=== PATIENT | male | born 1960 | race Caucasian/White ===

== ENCOUNTER 2019-04-02 08:49 | Inpatient (IN) ==
--- NOTE | 2019-03-11 14:22 | Anesthesiology Consultation ---
Date of Service March 11, 2019 Assessment & Plan (1) Encounter for pre-operative examination: -No previous anesthesia records with intubations. Chart Review Chart Review: Acceptable Risk for Surgery and Patient seen in Pre Admission Testing Consults Requested medical ([facility] - 03/13 @ 2:45) Patient was seen by PCP at [facility] on 03/13. Per note, "DJD Left Shoulder -- Stable for surgery". Teaching & Discussion Pre-Anesthesia Teaching/Discussion Notes: Instructed NPO after midnight before surgery, except medications with 15 cc of water. Medication instructions provided according to the PAT guidelines. History Surgery Operation Date: 04/02/19 10:00 Proposed Procedures p Left Total Shoulder Arthroplasty - Matheus Colvin MD Height/Weight Height: 5 ft 9 in Weight: 86.7 kg Allergies Allergy/AdvReac Type Severity Reaction Status Date / Time bee pollen Allergy Severe Anaphylaxis Verified 03/05/19 13:16 varenicline [From Chantix] Allergy Unknown RASH TORSO Verified 03/05/19 13:16 Medications Home Medications Medication Instructions Recorded Confirmed Last Taken albuterol sulfate 2 puff INHALATION Q6H PRN 03/05/19 03/05/19 Unknown cholecalciferol (vitamin D3) 4,000 unit PO QAM 03/05/19 03/05/19 Unknown [Vitamin D3] duloxetine 90 mg PO QAM 03/05/19 03/05/19 Unknown mbptfwmwqtd-yfopfvrvf-qshpetor 1 inh INHALATION QAM 03/05/19 03/05/19 Unknown [Trelegy Ellipta] hydrocodone-acetaminophen 1 tab PO TID PRN 03/05/19 03/05/19 Unknown lisinopril-hydrochlorothiazide 1 tab PO QAM 03/05/19 03/05/19 Unknown methocarbamol [Robaxin] 500 mg PO BID 03/05/19 03/05/19 Unknown multivitamin with minerals 1 cap PO QAM 03/05/19 03/05/19 Unknown omeprazole 40 mg PO QAM 03/05/19 03/05/19 Unknown simvastatin 40 mg PO PM 03/05/19 03/05/19 Unknown sucralfate [Carafate] 1 g PO QID PRN 03/05/19 03/05/19 Unknown Past Medical History Medical History Cancer SCLC - Dx 12/17 - UNDER OBSERVATION 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 Denies CP. Able to do housework and cooking. ) Past Surgical History Surgical History Fusion of spine LUMBAR CERVICAL History of adenoidectomy History of colonoscopy X MULTIPLE History of esophagogastroduodenoscopy (EGD) History of herniorrhaphy UMBILICAL History of tonsillectomy History of total knee replacement R/L Past Anesthesia History No Hx of Anesthesia Complications and No Family Hx of Anesthesia Complications History of PONV No Hx of PONV and No Hx of Motion Sickness Social History Smoking Status: Heavy tobacco smoker Smoking cigarettes per day: 2 PPD X 42 YRS Do You Dip or Chew Tobacco: No Hx Alcohol Use: Yes Alcohol type: beer alcohol intake frequency: a few times a week (weekends usually) Hx Substance Use: No Review of Systems Patient denies chest pain, palpitations. +SOB/MARIE (Lung Cancer & COPD/Emphysema) +Joint Pain (Neck, Back, Knee, Shoulder, Hands) +Acid Reflux (Controlled with current medications) +Cough/Wheezing (Lung Cancer & COPD/Emphysema - improves with inhalers) Physical Exam Vital Signs BP: 137/81 P: 83 R: 18 T: 98.7 SPO2: 97% on RA ENMT Mouth: + poor dentition Thyromental Distance: < 3.5 Finger Breadths (3) Mallampati Class: II Neck normal visual inspection and trachea midline; neck extension not limited Respiratory normal respiratory effort Auscultation: lungs clear to auscultation bilaterally Cardiovascular Rate/Rhythm: regular rate and regular rhythm Heart Sounds: no murmur Vessels: no carotid bruit Neurologic moves all extremities Psychiatric Orientation: alert and oriented x 3 Testing Laboratory Results 03/11/19 14:52 03/11/19 14:52 03/11/19 03/11/19 03/11/19 14:52 14:52 14:52 PT 10.5 INR 1.0 APTT 26.3 Hemoglobin A1c 5.2 Urine Color Urine Appearance Urine pH Ur Specific [place] Urine Protein Urine Glucose (UA) Urine Ketones Urine Nitrite Ur Leukocyte Esterase Blood Type A Positive Antibody Screen NEGATIVE 03/11/19 14:52 PT INR APTT Hemoglobin A1c Urine Color Yellow Urine Appearance Clear Urine pH 6.0 Ur Specific [place] 1.013 Urine Protein Negative Urine Glucose (UA) Negative Urine Ketones Negative Urine Nitrite Negative Ur Leukocyte Esterase Negative Blood Type Antibody Screen Electrocardiogram Date: 03/11/19 Findings: + NSR @ (72) and + no change from (09/12/13) Chest X-Ray Date: 03/11/19 Findings: + NAD
--- NOTE | 2019-03-11 14:28 | PAT Medication Instructions ---
Medication Instructions Date of Service March 11, 2019 Home Medications albuterol sulfate 2 puff INHALATION Q6H NEEDED cholecalciferol (vitamin D3) [Vitamin D3] 4,000 unit PO QAM duloxetine 90 mg PO QAM elntjzyiuzw-jnlkuplhh-ccdsuyir [Trelegy Ellipta] 1 inh INHALATION QAM hydrocodone-acetaminophen 1 tab PO TID NEEDED lisinopril-hydrochlorothiazide 1 tab PO QAM methocarbamol [Robaxin] 500 mg PO BID multivitamin with minerals 1 cap PO QAM omeprazole 40 mg PO QAM simvastatin 40 mg PO PM sucralfate [Carafate] 1 g PO QID NEEDED DO NOT take the morning of surgery cholecalciferol (vitamin D3) [Vitamin D3] 4,000 unit PO QAM lisinopril-hydrochlorothiazide 1 tab PO QAM methocarbamol [Robaxin] 500 mg PO BID multivitamin with minerals 1 cap PO QAM sucralfate [Carafate] 1 g PO QID NEEDED Take morning of surgery With a small sip of water, OTHERWISE NOTHING TO EAT OR DRINK AFTER MIDNIGHT: albuterol sulfate 2 puff INHALATION Q6H NEEDED (if needed; bring to hospital) hydrocodone-acetaminophen 1 tab PO TID NEEDED (if needed; STOP 4 hours before surgery) duloxetine 90 mg PO QAM maxnzjliwap-egykyxzvp-ddflgsjv [Trelegy Ellipta] 1 inh INHALATION QAM omeprazole 40 mg PO QAM Take evening before surgery albuterol sulfate 2 puff INHALATION Q6H NEEDED (if needed) hydrocodone-acetaminophen 1 tab PO TID NEEDED (if needed) methocarbamol [Robaxin] 500 mg PO BID simvastatin 40 mg PO PM sucralfate [Carafate] 1 g PO QID NEEDED (if needed) Other Notes If you have any questions please call us at [phone] or [phone] or [phone] or [phone]
[2019-03-11 16:07] LABS: Appearance Urine Clear (Clear); Basophils # (auto) 0.04 K/uL (0-0.2); Basophils % (auto) 0.4 %; Bilirubin Urine Negative (Negative); Blood Urine Negative (Negative); Color Urine Yellow; Eosinophils # (auto) 0.21 K/uL (0-0.5); Glucose Urine UA Negative (Negative); Hematocrit (blood only) 43.6 % (42-52); Hemoglobin 15.7 g/dL (14.0-18.0); Immature Granulocytes # (auto) 0.02 K/uL (0.00-0.02); Immature Granulocytes % (auto) 0.2 %; Ketones Urine Negative (Negative); Leukocyte Esterase Urine Negative (Negative); Lymphocytes # (auto) 1.92 K/uL (1.2-3.4); Lymphocytes % (auto) 18.7 %; Mean Corpuscular Volume 94.4 fL (80-100); Mean Platelet Volume 9.3 fL (7.4-10.4); Monocytes # (auto) 0.74 K/uL (0.11-0.59); Monocytes % (auto) 7.2 %; Neutrophils # (auto) 7.32 K/uL (1.4-6.5); Neutrophils % (auto) 71.5 %; Nitrite Urine Negative (Negative); Platelet Count 232 K/uL (130-400); Protein Urine Negative (Negative); RDW Coefficient of Variation 12.6 % (11.5-14.5); RDW Standard Deviation 43.2 fL (36.4-46.3); Red Blood Count 4.62 M/uL (4.7-6.1); Specific Gravity Urine 1.013 (1.000-1.030); Urobilinogen Urine Negative (Negative); White Blood Count 10.25 K/uL (4.8-10.8)
[2019-03-11 16:14] LABS: Albumin Level 4.3 gm/dl (3.4-5.0); BUN Creatinine Ratio 13.4 (10-20); Calcium 9.9 mg/dl (8.5-10.1); Est GFR (African American) 117.5; Est GFR (Non-African American) 101.4; Potassium 4.2 mmol/L (3.5-5.1)
--- NOTE | 2019-03-11 16:16 | XRay Report ---
XR chest Pre-admission PA/Lat HISTORY: 59 years-old Male pat preoperative exam. COMPARISON: Chest radiograph 09/12/2013 TECHNIQUE: PA and lateral views of the chest FINDINGS: Cardiomediastinal and hilar silhouettes are within normal limits. No pneumothorax, pleural effusion, focal airspace consolidation or overt pulmonary edema. Degenerative changes of the shoulders and spin e. IMPRESSION: No acute process. The above report was generated using voice recognition software. It may contain grammatical, syntax o r spelling errors. Electronically signed by: Corbin Neff M.D. 03/11/2019 4:15 PM
[2019-03-11 16:21] LABS: Partial Thromboplastin Time 26.3 Seconds (21.0-31.0); Prothrombin Time 10.5 Seconds (9.0-12.0)
[2019-03-12 06:13] LABS: Estimated Average Glucose 103 mg/dl; Hemoglobin A1C 5.2 % (4.5-5.6)
--- NOTE | 2019-04-01 13:02 | History and Physical Report ---
DATE OF ADMISSION: 04/02/2019 CHIEF COMPLAINT: Chronic left shoulder pain. HISTORY OF PRESENT ILLNESS: This is a 59-year-old male patient of Dr. Colvin'monisha complaining of chronic left shoulder pain, longstanding, now progressively getting worse over the past 2 years. The patient has failed conservative treatment including injections and lfve-adi-jbjlqle medications. He has been diagnosed clinically and radiographically with end-stage osteoarthritis and wishes to proceed with an elective left total shoulder arthroplasty. PAST MEDICAL HISTORY: Hypertension, hypercholesterolemia, chronic obstructive pulmonary disease, rheumatoid arthritis, neck problems, sciatica, lung cancer. SOCIAL HISTORY: A 2-pack per day x42 years, nondrinker. PAST SURGICAL HISTORY: Back surgery, bilateral knee surgeries, cervical spine surgeries, hernia repair, tonsillectomy, adenoid surgery. FAMILY HISTORY: Noncontributory. REVIEW OF SYSTEMS: Chronic left shoulder pain. Otherwise, denies any shortness of breath, chest pain, nausea, vomiting or any other joint complaints. MEDICATIONS: Include Carafate 1 gram 4 times daily, duloxetine 30 mg daily, O[place]llo 10/325 as needed, hydroxyzine 25 mg 3 times daily, methocarbamol 500 mg 3 times daily, multivitamin daily, Prevacid 40 mg daily, Prilosec 20 mg daily, Spiriva inhalation daily, tizanidine 2 mg 3 times daily, vitamin D 4000 international units daily, Zocor 40 mg daily. ALLERGIES: CHANTIX AND BEE STINGS. PHYSICAL EXAMINATION: GENERAL: Well-developed, well-nourished 59-year-old male in no acute distress. He is alert and oriented x3 and pleasant. HEENT: Normocephalic, atraumatic. Extraocular motions are intact. Pupils are equal, reactive to light. HEART: Regular rate and rhythm. LUNGS: Clear with decreased sounds throughout. ABDOMEN: Soft and nontender. Bowel sounds present. EXTREMITIES: Left shoulder has a limited range of motion of 0-120 actively, passively 0-180. He has crepitation and pain with strength testing. He has 4/5 strength. NEUROLOGIC: Neurovascularly, he is intact in his left upper extremity. DIAGNOSES: Left shoulder end-stage osteoarthritis, hypertension, hypercholesterolemia, chronic obstructive pulmonary disease, rheumatoid arthritis, neck problems, sciatica, history of lung cancer. PLAN: The patient was advised of his diagnoses. Indications, risks, benefits, postop course have all been reviewed. The patient wished to proceed with a left shoulder arthroplasty. Necessary consent forms, preoperative testing and clearances will be obtained.
[~2019-04-02 08:49] MED LIST: ACETAMINOPHEN 500 MG TAB PO SCH; CEFAZOLIN 2000MG 2,000 MG/15 ML SYR IV SCH; CeleBREX 200 MG CAP PO SCH; FAMOTIDINE 20 MG TAB PO SCH; GABAPENTIN 300 MG x 2 PO SCH; LR 15ML/HR IV SCH; METOCLOPRAMIDE HCL 10 MG TABLET PO SCH; ROPIVACAINE 0.5% 5 MG/ML 30 ML VIAL ONE; dexAMETHasone 4 MG TAB PO SCH
--- NOTE | 2019-04-02 09:26 | History & Physical Bridge Note ---
Date of Service April 02, 2019 History & Physical Bridge Note I have examined the patient, reviewed the History & Physical and in the interval since the performance of the History & Physical I have noted the following changes of clinical significance: no changes noted
[2019-04-02] MEDS ORDERED: ATROPINE SULFATE 0.1 MG/ML 10ML SYR IV PRN (09:44)
[2019-04-02] MEDS ORDERED: ePHEDrine sulfate 50 MG/ML AMP IV PRN (09:44)
[2019-04-02] MEDS ORDERED: fentaNYL citrate 100 MCG/2 ML VIAL IV PRN (09:44)
[2019-04-02] MEDS ORDERED: ONDANSETRON INJ 2 MG/ML 2 ML VIAL IV PRN ×2 (09:44→15:08)
[2019-04-02] MEDS ORDERED: MIDAZOLAM HCL 1 MG/ML 2ML VIAL ONE (10:09)
[2019-04-02] MEDS ORDERED: fentaNYL citrate 100 MCG/2 ML VIAL ONE (10:09)
[2019-04-02] MEDS ORDERED: EPINEPHrine HCL INJ 1 MG/ML 30ML ONE (10:46)
[2019-04-02] MEDS ORDERED: BACITRACIN INJ 50,000 UNIT VIAL ONE (10:47)
[2019-04-02] MEDS ORDERED: PROPOFOL IV EMULSION 10 MG/ML 20 ML VIAL IV ONE (11:37)
[2019-04-02] MEDS ORDERED: ROCURONIUM BROMIDE 10 MG/ML 5 ML VIAL ONE (11:37)
[2019-04-02] MEDS ORDERED: LIDOCAINE HCL 2% 2 ML VIAL/AMP(20MG/ML) INFIL ONE (12:56)
[2019-04-02] MEDS ORDERED: PHENYLEPHRINE 100MCG/ML 5ML SYR ONE (12:56)
[2019-04-02] MEDS ORDERED: GLYCOPYRROLATE 0.2 MG/ML VIAL ONE (13:31)
[2019-04-02] MEDS ORDERED: NEOSTIGMINE METHYLSULFATE 5 MG/5 ML SYR ONE (13:31)
[2019-04-02] MEDS ORDERED: ePHEDrine sulfate 50 MG/ML AMP ONE (13:52)
--- NOTE | 2019-04-02 14:03 | Post Operative Brief Note ---
Immediate Post Op Note v1 Date of Surgery April 02, 2019 Pre & Post Diagnosis Operation Date: 04/02/19 11:50 Pre-Op Diagnosis: Degenerative Joint Disease Left Shoulder Post-Op Diagnosis: Degenerative Joint Disease Left Shoulder, Biceps tendonopathy, SLAP tear Procedure Operation Date: 04/02/19 11:50 Actual Procedures p Left Total Shoulder Arthroplasty; Bicep Tenodesis(Left) - Matheus Colvin MD Surgeon Matheus Colvin MD [employer] Dean Anselmo ROA Estimated Blood Loss 100 Findings Consistent with Post-Op Diagnosis Specimens Humeral head Drains Hemovac Drain Anesthesia Type General Regional Complications none Disposition Accompanied Patient To Recovery: No Disposition: Recovery Room Overlapping Procedure I was immediately available: during the entire case.
--- NOTE | 2019-04-02 14:39 | Anesthesiology Progress Note ---
Date of Service April 02, 2019 Anesthesia Post Procedure Vital Signs Vital Signs: Temp Pulse Pulse Resp BP Pulse Ox 04/02/19 14:35 36.3 C L 77 15 148/92 H 95 04/02/19 14:25 77 15 138/89 94 04/02/19 14:15 74 13 139/84 94 04/02/19 14:06 36.4 C L 74 12 152/89 H 91 04/02/19 09:37 36.8 C 89 20 171/90 H 95 Pain Intensity Left Shoulder: Pain Intensity: 8 Left Knee: Pain Intensity: 5 Transfer of Care Handoff Completed per policy Notes Mental Status: alert / awake / arousable Patient Amnestic to Procedure: Yes Nausea / Vomiting: adequately controlled Pain: adequately controlled Airway Patency, RR, SpO2: stable & adequate BP & HR: stable & adequate Hydration State: stable & adequate Anesthetic Complications: no major complications apparent
--- NOTE | 2019-04-02 15:00 | XRay Report ---
XR shoulder LT min 2V routine HISTORY: 59 years-old Male Post shoulder surgery left shoulder arthroplasty COMPARISON: Chest radiograph 09/12/2013 TECHNIQUE: 2 views of the left shoulder FINDINGS: Left shoulder arthroplasty. Satisfactory alignment without acute fracture. Overlying skin susannah are noted along with expected postsurgical soft tissue swelling and deep tissue air with surgical draina ge catheter. At least mild osteoarthritis about the AC joint. Postoperative changes of the cervical s pine. IMPRESSION: Satisfactory alignment of the left shoulder arthroplasty. The above report was generated using voice recognition software. It may contain grammatical, syntax o r spelling errors. Electronically signed by: Corbin Neff M.D. 04/02/2019 2:59 PM
--- NOTE | 2019-04-02 15:04 | Operative Report ---
Post Operative Report Pre & Post Diagnosis Operation Date: 04/02/19 11:50 Pre-Op Diagnosis: Degenerative Joint Disease Left Shoulder Post-Op Diagnosis: Degenerative Joint Disease Left Shoulder, Biceps tendinopathy, SLAP tear Procedure Operation Date: 04/02/19 11:50 Actual Procedures p Left Total Shoulder Arthroplasty, (Cemented glenoid); Bicep Tenodesis(Left) - Matheus Colvin MD Surgeon Matheus Colvin MD Line Patrolman Anselmo ROA Estimated Blood Loss 100 Findings Consistent with Post-Op Diagnosis Specimens Humeral head Drains 2 Hemovac Anesthesia Type General Regional Complications none Disposition Accompanied Patient To Recovery: No Disposition: Recovery Room Indications 59-year-old male with progressive pain disability left shoulder. He has kndg-sy-icpw crepitation has MRI and x-rays demonstrating grade 4 glenohumeral osteoarthritis yizp-qz-rirb and rotator cuff tendinopathy without a tear and biceps tenosynovitis. Description of Procedure The patient was taken to the operating room and anesthetized under a general and regional block anesthesia. A towel roll was placed under the medial border of the scapula of the left shoulder. The patient's head was placed on a foam headrest and protective eyewear was placed and the extremities were well padded. The arm was draped free in order to manipulate the shoulder as necessary. The shoulder exam demonstrated patient had 45 degrees of external rotation 145 degrees of forward elevation and 80 degrees of abduction and zzaw-dm-tlbl crepitation glenohumeral. The shoulder was sterilely prepped and draped in the usual sterile fashion. An anterior deltopectoral approach was performed. A longitudinal incision was made in the interval. The skin was incised sharply and subcutaneous tissues dissected down to the fascia. The cephalic vein was identified and retracted laterally with the deltoid. Any crossing veins were tied off with silk ties and divided. The clavipectoral fascia was divided at the lateral margin of the conjoined tendon and divided up to the level of the coracoacromial ligament which was preserved. The upper 1 cm of the pectoralis was released for inferior exposure. The biceps tendon findings demonstrated significant tenosynovitis extending up into the upper bicipital groove. Intra- articular it was widened and there was a type II SLAP tear. The rotator cuff tendon findings demonstrated intact exterior of the rotator cuff at the undersurface of supraspinatus had partial tearing tendinopathy and there was chronic synovitis and inflamed joint capsule. There were some steroid deposits from prior injections. The circumflex vessels were identified and tied off with silk ties and divided laterally. The fibers and subscapularis were split longitudinally at the level of the circumflex vessels down to the capsule and then reflected off the inferior capsule using a Kitner elevator. The axillary nerve was identified with a tug test and protected with a blunt Yanely retractor. The rotator interval was opened up and extended down to the glenoid. The biceps tendon was identified and tenodesed to the pectoralis tendon with [id number]-cl-ngycu #2 FiberWire sutures in the proximal biceps was resected. The subscapularis tendon was taken down with a trans-tendinous incision leaving a cuff of tissue for repair on the lesser tuberosity. The incision was carried down to the tendon and the capsule and a #1 Vicryl suture was placed into the free end of the subscapularis tendon. The capsule was subperiosteally dissected off the inferior neck of the humerus exposing the humeral osteophytes which demonstrated inferior osteophytes from anterior through inferior and posterior. The osteophytes were excised with an artist chisel and a rongeur. The capsule was released along the inferior neck of the humerus. The humerus was then retracted posterior to the glenoid with a Fukuda retractor. The remainder of the biceps tendon and labrum was resected. The glenoid findings demonstrated completely eburnated exposed bone with no articular cartilage with a type A pattern of glenoid wear. I did an anterior inferior and posterior inferior release with electrocautery on bone and a Bar elevator with the axillary nerve continuing to be protected with the blunt Hohmann retractor inferiorly. When the releases were completed and the humeral head was exposed with some extension and external rotation and in anatomic head cut was made using the oscillating saw. The humeral head findings demonstrated eburnated bone with no articular surface remaining centrally over the majority of the humeral head there was no flattening. The humerus was then prepared for the simplicity humeral head. The humeral head was sized for 52 x 19 component. The guide for the central drill hole was made centrally in the cut surface. The reamer was used on the surface. Central drill hole was made. The [employer] trial punch was placed and then the cup protector was placed.. The humerus was then retracted posterior to the glenoid with Hohmann retractors and Bankart retractor placed anteriorly. A central drill hole was made into the glenoid. The glenoid was sized for a size large component, 50 radius, Cortiloc pegged perform implant. The [employer] total shoulder arthroplasty system was used and the perform glenoid component was chosen. The glenoid was reamed and the central drill widened and the guide for the peg holes was placed in the peg holes were drilled and a trial component was placed with a tight fit. The trial was removed and the glenoid was irrigated with pulsatile lavage antibiotic solution and the drill holes were dried and packed with epinephrine-soaked tampons for hemostasis. The [place] G cement was vacuum mixed. The final component was cemented into position and held in position with pressure until the cement cured. The cut protector was removed and the 52 x 19 humeral head trial was placed. A trial reduction was performed and the shoulder was stable. The trial was removed and the humerus cut surface was irrigated with antibiotic solution with bacitracin. 3 drill holes were made into the hard bone in the bicipital groove lateral to the lesser tuberosity and 3 #5 FiberWire transosseous sutures were placed for repair of the subscapularis. After further irrigation the simplicity size 3 nucleus was impacted leaving about 3 mm proud. Then the humeral head 52 x 19 was impacted into the nucleus and fully impacted until it was flush with the humerus with a tight press-fit. The humerus was reduced to the glenoid and stability verified. The subscapularis was repaired with the #5 FiberWire sutures in a Jc-Chirag suture technique and lateral row fixation with guonqv-he-jmapq #2 FiberWire in the soft tissue. The rotator interval was closed and maximal external rotation. The pectoralis was then closed with sugsmo-[id number] #2 FiberWire suture. 2 Hemovac drains were placed. The deltopectoral interval was closed with edynvh-yk-tpuwp #1 Vicryl sutures. The subcutaneous tissues were closed with interrupted 2-0 Vicryl and the skin was closed with susannah and a sterile dressing was applied. The patient tolerated the procedure well. Anselmo Blackwood my physician shop assistant, assisted in soft tissue retraction instrument management suture management and assisted in the subcutaneous and skin closure and will participate in the postoperative care the patient. I attest to the content of the Intraoperative Record and any orders documented therein. Any exceptions are noted below.
[2019-04-02] MEDS ORDERED: BISACODYL 10 MG SUPP PR PRN (15:08)
[2019-04-02] MEDS ORDERED: SUCRALFATE 1 GM TAB PO PRN (15:08)
[2019-04-02] MEDS ORDERED: NALOXONE HCL 0.4 MG/1 ML VIAL/CARP IV PRN (15:08)
[2019-04-02] MEDS ORDERED: ALBUTEROL HFA 8 GM INHALER INH PRN (15:08)
[2019-04-02] MEDS ORDERED: MAGNESIUM HYDROXIDE SUSP 30 ML UDC PO PRN (15:08)
[2019-04-02] MEDS ORDERED: OXYCODONE HCL IR 5 MG TAB (IMMEDIATE RELEASE) ONE (15:18)
--- NOTE | 2019-04-02 16:12 | Hospitalist Consultation ---
Date of Consultation April 02, 2019 Assessment & Plan (1) Shoulder pain, left: s/p L reverse shoulder with Dr. Colvin on 04/02 As per ortho (2) Hyperlipidemia: continue home meds (3) HTN (hypertension): continue home meds (4) COPD (chronic obstructive pulmonary disease): continue home meds (5) Lung cancer: States he has had no tx Mass is being watched due to small size (6) Gastric ulcer: with hx of GERD and hiatal hernia continue home meds (7) Rheumatoid arthritis: continue home meds (8) Tobacco use disorder: 2ppd, would like a nicotine patch (9) DVT prophylaxis: As per ortho History of Present Illness Attending Physician: Matheus Colvin MD History of Present Illness 59 y/o M who was admitted on 04/02 s/p L reverse shoulder with Dr. Colvin. Pt is doing well post-op. He does have some pain starting in his L shoulder, but he expected that. He has only had water and crackers thus far, but no issues with that PO. Pt denies fever, SOB, chest pain, abd pain, n/v/c/d, LE pain or swelling. Allergies Allergy/AdvReac Type Severity Reaction Status Date / Time bee pollen Allergy Severe Anaphylaxis Verified 04/02/19 09:32 [email or web address] [From Chantix] Allergy Mild RASH TORSO Verified 04/02/19 09:32 Home Medications Home Medications Medication Instructions Recorded Confirmed Type albuterol sulfate 2 puff INHALATION Q6H PRN 03/05/19 04/02/19 History cholecalciferol (vitamin D3) 4,000 unit PO QAM 03/05/19 04/02/19 History [Vitamin D3] duloxetine 90 mg PO QAM 03/05/19 04/02/19 History phpcqczfwys-wlitebihp-khklvqmz 1 inh INHALATION QAM 03/05/19 04/02/19 History [Trelegy Ellipta] hydrocodone-acetaminophen 1 tab PO TID PRN 03/05/19 04/02/19 History lisinopril-hydrochlorothiazide 1 tab PO QAM 03/05/19 04/02/19 History methocarbamol [Robaxin] 500 mg PO BID 03/05/19 04/02/19 History multivitamin with minerals 1 cap PO QAM 03/05/19 04/02/19 History omeprazole 40 mg PO QAM 03/05/19 04/02/19 History simvastatin 40 mg PO PM 03/05/19 04/02/19 History sucralfate [Carafate] 1 g PO QID PRN 03/05/19 04/02/19 History Patient History Medical History Cancer SCLC - Dx 12/17 - UNDER OBSERVATION 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 Chronic obstructive pulmonary disease Emphysema Hyperlipidemia Hypertension Osteoarthritis Rheumatoid arthritis Stomach ulcer HX GERD (gastroesophageal reflux disease) Surgical History Fusion of spine LUMBAR CERVICAL History of adenoidectomy History of colonoscopy X MULTIPLE History of esophagogastroduodenoscopy (EGD) History of herniorrhaphy UMBILICAL History of tonsillectomy History of total knee replacement R/L Social History Preferred Language: [place] Island[place] Communication Ability: Effective [employer] Sales Representative Required: No Beliefs That Will Affect Care: None Current Living Situation: Parent Other Information That Helps Us Care for You: No Feels Safe at Home: Yes Safety Concerns: Feels Safe At This Time Smoking Status: Heavy tobacco smoker Cigarettes Per Day: 2 PPD X 42 YRS Do You Dip or Chew Tobacco: No Second Hand Exposure: No Hx Alcohol Use: Yes Alcohol type: beer Alcohol Intake Frequency Comment: on the weekends while watching sports Hx Substance Use: No Review of Systems Review of Systems: Pertinent positives and negatives reviewed in HPI--all others negative Physical Exam Constitutional: WD/WN, vitals as above Eyes: normal visual wilkinson by confrontation and + anicteric sclerae Neck: normal visual inspection and trachea midline Respiratory: normal respiratory effort, lungs clear to auscultation Cardiovascular: Rate/Rhythm: regular rate and regular rhythm Gastrointestinal (Abdomen): Inspection/Auscultation: abdomen not distended Percussion/Palpation: abdomen soft; abdomen nontender Musculoskeletal: Head/Neck/Chest: normocephalic and head atraumatic negative for edema, peripheral pulses intact Skin: no rashes, warm and dry Neurologic: awake; not confused Speech / Cognition: normal speech Psychiatric: A+Ox3, euthymic affect Results & Data Vital Signs (Past 12 Hours) Vital Signs Temp Pulse Pulse Resp BP Pulse Ox 07/03/19 16:00 36.4 C L 84 18 144/94 H 98 04/02/19 15:31 36.5 C 77 18 138/92 98 04/02/19 15:00 36.5 C 77 16 159/84 H 97 04/02/19 14:50 36.4 C L 81 20 144/91 H 95 04/02/19 14:35 36.3 C L 77 15 148/92 H 95 04/02/19 14:25 77 15 138/89 94 04/02/19 14:15 74 13 139/84 94 04/02/19 14:06 36.4 C L 74 12 152/89 H 91 04/02/19 09:37 36.8 C 89 20 171/90 H 95 PG Care Time/CCT Total # of Minutes Spent Total Time Spent with Patient: Total time spent is greater than 50% in coordination of care (as documented) at patient's floor/unit and/or counseling patient:
[2019-04-02] MEDS: SODIUM CHLORIDE 0.9% 1000ML 1,000 ML IV SCH (16:14)
[2019-04-02] MEDS ORDERED: Nursing to Pharmacy Communication ONE (17:00)
[2019-04-02] MEDS ORDERED: NICOTINE 21 MG/24 HR TDSY TD SCH (17:30)
[2019-04-02] MEDS: NICOTINE 21 MG/24 HR TDSY TD SCH (18:03)
[2019-04-02] MEDS: HYDROmorphone INJ 0.5 MG/0.5 ML SYR IV PRN ×2 (18:03→22:30)
[2019-04-02] MEDS: CEFAZOLIN 2000MG 2,000 MG/15 ML SYR IV SCH (18:09)
[2019-04-02] MEDS: METHOCARBAMOL 500 MG TABLET PO SCH (21:02)
[2019-04-02] MEDS: ACETAMINOPHEN 500 MG TAB PO SCH (21:02)
[2019-04-02] MEDS: DOCUSATE SODIUM 100 MG CAP PO SCH (21:03)
[2019-04-02] MEDS: SIMVASTATIN 40 MG TAB PO SCH (21:04)
[2019-04-02] MEDS: SENNA 8.6 MG TAB PO SCH (21:04)
[2019-04-02] MEDS: ASPIRIN 81 MG ECTAB PO SCH (21:05)
[2019-04-02] MEDS: LISINOPRIL/HCTZ 10/12.5MG TAB PO SCH (21:07)
[2019-04-02] MEDS: LORazepam 1 MG TAB PO PRN (21:13)
[2019-04-02] MEDS: OXYCODONE HCL IR 5 MG TAB (IMMEDIATE RELEASE) PO PRN (21:13)
[2019-04-03] MEDS: OXYCODONE HCL IR 5 MG TAB (IMMEDIATE RELEASE) PO PRN ×5 (01:29→21:54)
[2019-04-03] MEDS: SODIUM CHLORIDE 0.9% 1000ML 1,000 ML IV SCH (01:33)
[2019-04-03] MEDS: CEFAZOLIN 2000MG 2,000 MG/15 ML SYR IV SCH (03:09)
[2019-04-03] MEDS: HYDROmorphone INJ 0.5 MG/0.5 ML SYR IV PRN ×2 (03:09→07:23)
[2019-04-03] MEDS: ACETAMINOPHEN 500 MG TAB PO SCH ×3 (05:28→21:55)
[2019-04-03 07:01] LABS: BUN Creatinine Ratio 8.8 (10-20); Creatinine Clr Calc Pharmacy 97.1 ml/min; Est GFR (African American) 108.2; Est GFR (Non-African American) 93.4; Hematocrit (blood only) 35.5 % (42-52); Hemoglobin 12.2 g/dL (14.0-18.0); Mean Corpuscular Hgb Conc 34.4 g/dL (32-36); Mean Corpuscular Volume 96.5 fL (80-100); Mean Platelet Volume 9.3 fL (7.4-10.4); Platelet Count 199 K/uL (130-400); Potassium 3.5 mmol/L (3.5-5.1); RDW Coefficient of Variation 12.8 % (11.5-14.5); RDW Standard Deviation 45.2 fL (36.4-46.3); Red Blood Count 3.68 M/uL (4.7-6.1)
[2019-04-03 07:02] LABS: Basophils # (auto) 0.02 K/uL (0-0.2); Basophils % (auto) 0.1 %; Eosinophils # (auto) 0.01 K/uL (0-0.5); Eosinophils % (auto) 0.1 %; Immature Granulocytes # (auto) 0.03 K/uL (0.00-0.02); Immature Granulocytes % (auto) 0.2 %; Lymphocytes # (auto) 1.18 K/uL (1.2-3.4); Lymphocytes % (auto) 8.3 %; Monocytes # (auto) 0.84 K/uL (0.11-0.59); Monocytes % (auto) 5.9 %; Neutrophils # (auto) 12.12 K/uL (1.4-6.5); Neutrophils % (auto) 85.4 %; Polychromasia 1+
[2019-04-03] MEDS: DULOXETINE HCL 30 MG CAP PO SCH (07:25)
[2019-04-03] MEDS: PANTOprazole 40 MG TAB PO SCH (07:25)
[2019-04-03] MEDS: MULTIVITAMIN TAB PO SCH (07:26)
[2019-04-03] MEDS: ASPIRIN 81 MG ECTAB PO SCH ×2 (07:26→21:54)
[2019-04-03] MEDS: CHOLECALCIFEROL 1,000 UNITS TAB PO SCH (07:26)
[2019-04-03] MEDS: METHOCARBAMOL 500 MG TABLET PO SCH ×2 (07:26→21:55)
[2019-04-03] MEDS: NICOTINE 21 MG/24 HR TDSY TD SCH (07:27)
[2019-04-03] MEDS: DOCUSATE SODIUM 100 MG CAP PO SCH ×2 (07:27→17:30)
--- NOTE | 2019-04-03 08:03 | Orthopedic Progress Note ---
Date of Service April 03, 2019 Assessment & Plan (1) Primary osteoarthritis, left shoulder: POD #1 cemented left total shoulder arthroplasty Pain management DVT prophylaxisSCDs, aspirin PT/OT -A.m. labshemoglobin 12.2 this a.m. down from 15 on preop labs. Acute blood loss anemia due to surgical loss versus dilutional effect -Discharge planninghome once stable and pain is better controlled Subjective Patient is POD #1 left total shoulder arthroplasty. Seen in bed resting. Having a lot of pain this morning, block wore off overnight. No other complaints, denies chest pain, shortness breath, dizziness, nausea, vomiting, diarrhea. Review of Systems Review of Systems: All systems reviewed & are unremarkable except as noted in HPI & below Physical Exam Physical Exam: Dressing is clean dry and intact, sling in place. Distal neurovascularly, fingers are mobile, good medical art therapist strength. Results & Data Vital Signs (Past 12 Hours) Vital Signs Temp Pulse Resp BP Pulse Ox 04/03/19 06:48 36.6 C 80 18 130/77 98 04/03/19 03:00 36.5 C 83 18 129/81 98 04/02/19 22:33 36.7 C 97 H 16 120/65 96
[2019-04-03] MEDS ORDERED: HYDROmorphone INJ 0.5 MG/0.5 ML SYR IV STA (08:37)
[2019-04-03] MEDS ORDERED: MULTIVITAMIN WITH MINERALS PO SCH (09:00)
[2019-04-03] MEDS ORDERED: Nursing to Pharmacy Communication SCH (09:00)
[2019-04-03] MEDS: HYDROmorphone INJ 1 MG/ML SYRINGE IV PRN ×4 (11:48→23:38)
--- NOTE | 2019-04-03 11:48 | Hospitalist Progress Note ---
Date of Service April 03, 2019 Assessment & Plan (1) Shoulder pain, left: s/p L reverse shoulder with Dr. Colvin on 04/02 needs improved pain control -continue bowel regimen ASA 81 bid for DVT proph (2) Hyperlipidemia: continue home simvastatin (3) HTN (hypertension): BP well controlled continue home zestoretic (4) COPD (chronic obstructive pulmonary disease): No acute exacerbation -continue home inhalers (5) Lung cancer: States he has had no tx Mass is being watched due to small size, was discovered in December on imaging, has not had a biopsy yet? Was told he has "small cell CA" -f/u with Pulm outpt (6) Gastric ulcer: with hx of GERD and hiatal hernia continue home PPI and carafate (7) Rheumatoid arthritis: Has been on Celebrex for this follows with PCP (8) Tobacco use disorder: 2ppd, not interested in quitting -continue nicotine patch (9) Anxiety: continue lorazepam as needed, CYmbalta (10) DVT prophylaxis: ASA 81 bid Dispo-remain hospitalized for improved pain control as per Ortho Hospitalist Service will sign off as pt is otherwise medically stable Please feel free to reconsult as needed for new or acute issues. Subjective Having a lot of pain in the left shoulder. No substernal CP, has chronic dyspnea but it is no worse than usual. Denies abd pain, nausea. Has not yet moved his bowels but is making plenty of urine. Review of Systems Review of Systems: All systems reviewed & are unremarkable except as noted in HPI & below Physical Exam Constitutional: WD/WN, vitals as above Eyes: PERRL, conjunctivae normal, anicteric sclerae ENMT: external ear and nose normal, oropharynx normal Neck: trachea midline, no thyromegaly Respiratory: normal respiratory effort, lungs clear to auscultation Cardiovascular: RRR, no murmur, no edema Extremities: no calf tenderness Gastrointestinal (Abdomen): normal bowel sounds, soft, nontender, no hepatosplenomegaly Musculoskeletal: Extremities: + extremities abnormal to inspection (LUE in sling with ice pack in place), no cyanosis and no clubbing Skin: no rashes, warm and dry Neurologic: moves all extremities and awake; no focal motor deficits Psychiatric: A+Ox3, euthymic affect Results & Data Vital Signs (Past 12 Hours) Vital Signs Temp Pulse Resp BP Pulse Ox 04/03/19 06:48 36.6 C 80 18 130/77 98 04/03/19 03:00 36.5 C 83 18 129/81 98 Laboratory Results 04/03/19 04/03/19 Range/Units 06:12 06:12 WBC 14.20 H (4.8-10.8) K/uL RBC 3.68 L (4.7-6.1) M/uL Hgb 12.2 L (14.0-18.0) g/dL Hct 35.5 L (42-52) % MCV 96.5 (80-100) fL MCH 33.2 (25-34) pg MCHC 34.4 (32-36) g/dL RDW Std Deviation 45.2 (36.4-46.3) fL RDW Coeff of Adrian 12.8 (11.5-14.5) % Plt Count 199 (130-400) K/uL MPV 9.3 (7.4-10.4) fL Immature Gran % (Auto) 0.2 % Neut % (Auto) 85.4 % Lymph % (Auto) 8.3 % Porter % (Auto) 5.9 % Eos % (Auto) 0.1 % Baso % (Auto) 0.1 % Immature Gran # (Auto) 0.03 H (0.00-0.02) K/uL Neut # (Auto) 12.12 H (1.4-6.5) K/uL Lymph # (Auto) 1.18 L (1.2-3.4) K/uL Porter # (Auto) 0.84 H (0.11-0.59) K/uL Eos # (Auto) 0.01 (0-0.5) K/uL Baso # (Auto) 0.02 (0-0.2) K/uL Polychromasia 1+ Sodium 134 L (136-145) mmol/L Potassium 3.5 (3.5-5.1) mmol/L Chloride 99 (98-107) mmol/L Carbon Dioxide 27 (21-32) mmol/L Anion Gap 8.0 (3-11) BUN 8 (7-18) mg/dl Creatinine 0.88 (0.6-1.4) mg/dl Est Cr Clr Drug Dosing 97.1 ml/min Est GFR ( Amer) 108.2 Est GFR (Non-Af Amer) 93.4 BUN/Creatinine Ratio 8.8 L (10-20) Glucose 163 H (70-99) mg/dl Calcium 8.0 L (8.5-10.1) mg/dl PG Care Time/CCT Total # of Minutes Spent Total Time Spent with Patient: Total time spent is greater than 50% in coordination of care (as documented) at patient's floor/unit and/or counseling patient:
[2019-04-03] MEDS: SENNA 8.6 MG TAB PO SCH (17:30)
[2019-04-03] MEDS: SIMVASTATIN 40 MG TAB PO SCH (21:55)
[2019-04-03] MEDS: LORazepam 1 MG TAB PO PRN (22:00)
[2019-04-04] MEDS: OXYCODONE HCL IR 5 MG TAB (IMMEDIATE RELEASE) PO PRN ×3 (03:00→11:25)
[2019-04-04] MEDS: HYDROmorphone INJ 1 MG/ML SYRINGE IV PRN ×3 (03:36→11:37)
[2019-04-04 05:41] LABS: Basophils # (auto) 0.01 K/uL (0-0.2); Basophils % (auto) 0.1 %; Eosinophils # (auto) 0.08 K/uL (0-0.5); Eosinophils % (auto) 0.6 %; Hematocrit (blood only) 35.9 % (42-52); Hemoglobin 12.5 g/dL (14.0-18.0); Immature Granulocytes # (auto) 0.04 K/uL (0.00-0.02); Immature Granulocytes % (auto) 0.3 %; Lymphocytes # (auto) 1.12 K/uL (1.2-3.4); Lymphocytes % (auto) 8.7 %; Mean Corpuscular Hgb Conc 34.8 g/dL (32-36); Mean Corpuscular Volume 98.4 fL (80-100); Mean Platelet Volume 8.8 fL (7.4-10.4); Monocytes # (auto) 1.13 K/uL (0.11-0.59); Monocytes % (auto) 8.8 %; Neutrophils # (auto) 10.46 K/uL (1.4-6.5); Neutrophils % (auto) 81.5 %; Platelet Count 171 K/uL (130-400); RDW Coefficient of Variation 12.8 % (11.5-14.5); Red Blood Count 3.65 M/uL (4.7-6.1); White Blood Count 12.84 K/uL (4.8-10.8)
[2019-04-04] MEDS: ACETAMINOPHEN 500 MG TAB PO SCH (05:47)
[2019-04-04 06:09] LABS: BUN Creatinine Ratio 11.8 (10-20); Calcium 8.1 mg/dl (8.5-10.1); Creatinine Clr Calc Pharmacy 147.4 ml/min; Est GFR (African American) 128.4; Est GFR (Non-African American) 110.8; Potassium 3.9 mmol/L (3.5-5.1)
[2019-04-04] MEDS: NICOTINE 21 MG/24 HR TDSY TD SCH (07:20)
[2019-04-04] MEDS: DOCUSATE SODIUM 100 MG CAP PO SCH (07:20)
[2019-04-04] MEDS: LISINOPRIL/HCTZ 10/12.5MG TAB PO SCH (07:20)
[2019-04-04] MEDS: MULTIVITAMIN TAB PO SCH (07:20)
[2019-04-04] MEDS: PANTOprazole 40 MG TAB PO SCH (07:20)
[2019-04-04] MEDS: CHOLECALCIFEROL 1,000 UNITS TAB PO SCH (07:20)
[2019-04-04] MEDS: DULOXETINE HCL 30 MG CAP PO SCH (07:20)
[2019-04-04] MEDS: ASPIRIN 81 MG ECTAB PO SCH (07:20)
--- NOTE | 2019-04-04 08:01 | Orthopedic Progress Note ---
Date of Service April 04, 2019 Assessment & Plan (1) Primary osteoarthritis, left shoulder: POD #2 cemented left total shoulder arthroplasty Pain management DVT prophylaxisSCDs, aspirin PT/OT -Discharge planninghome w today. Subjective Patient is POD #2 left total shoulder arthroplasty. Seen in bed resting. Pain controlled better this AM. No other complaints, denies chest pain, shortness breath, dizziness, nausea, vomiting, diarrhea. Physical Exam Physical Exam: LEft shoulder incision c/d/i, no drainage, no erythema, fingers mobile, sling in tact. Results & Data Vital Signs (Past 12 Hours) Vital Signs Temp Pulse Pulse Pulse Resp BP Pulse Ox 04/04/19 07:26 36.6 C 81 82 86 20 135/85 97 04/04/19 06:59 36.6 C 86 20 135/85 97 04/03/19 23:42 36.5 C 50 L 14 155/88 H 93
[2019-04-04] MEDS: METHOCARBAMOL 500 MG TABLET PO SCH (08:11)
--- NOTE | 2019-04-16 03:12 | Discharge Summary ---
HISTORY OF PRESENT ILLNESS: This is a 59-year-old male patient of Dr. Colvin's complaining of chronic left shoulder pain, longstanding, progressively getting worse. The patient has been diagnosed with end-stage osteoarthritis and wished to proceed with a total shoulder arthroplasty on the left. PAST MEDICAL HISTORY: Hypertension, hypercholesterolemia, chronic obstructive pulmonary disease, rheumatoid arthritis, neck problems, sciatica and lung cancer. POSTOPERATIVE COURSE: The patient underwent a left total shoulder arthroplasty and biceps tenodesis on 04/02/2019. He was followed closely with medical consultation, physical therapy and pain control. The patient did well postoperatively and was discharged home on postoperative day #2. PHYSICAL EXAMINATION: On discharge, left shoulder incision was clean, dry and intact. Girard were intact. Skin edges were approximated well. There was no redness or drainage. He had good elbow motion. Fingers were mobile. Sling was intact. Neurologically and neurovascularly he was intact in his left upper extremity. DIAGNOSES: Status post left total shoulder arthroplasty, biceps tenodesis with a history of hypertension, hypercholesterolemia, chronic obstructive pulmonary disease, rheumatoid arthritis, neck problems, sciatica and lung cancer. PLAN: The patient was discharged home with home health services. He will continue his preadmission medications with the addition of pain medications per his pain clinic. He will follow up with Dr. Colvin as scheduled as an outpatient.
== END 2019-04-04 11:59 | disposition home health service (06) | DRG 483 ==
LOC: ASU 08:49 → 3E 14:10